=== PATIENT | female | born 1985 | race African-American/Black ===

== ENCOUNTER 2018-09-26 16:47 | Emergency (ER) | payer OTHER ==
[~2018-09-26] VITALS: Ht 165.1 cm; Wt 86.2 kg
[2018-09-26 18:00] VITALS: BP 119/78
== END 2018-09-26 18:02 | disposition home or self-care (01) ==
LOC: ER 16:57
DX: N93.8 Other specified abnormal uterine and vaginal bleeding (principal)
CPT/HCPCS: 84703; 99283; A4606